=== PATIENT | female | born 1965 | race Caucasian/White ===

== ENCOUNTER 2016-12-30 08:17 | Day surgery (SDC) | payer BC, OTHER ==
[~2016-12-30 08:17] MED LIST: RINGERS SOLUTION,LACTATED 1,000 ML IV PRN
[2016-12-30] MEDS ORDERED: RINGERS SOLUTION,LACTATED 1,000 ML IV ONE (08:41)
--- NOTE | 2016-12-30 10:25 | OR ---
Operative Report - Dictated Report Narrative: Date: 12/30/2016 PRE: screening for colon CA POST: Normal colonoscopy Procedure: Total Colonoscopy Staff surgeon: Bennett Alfaro MD Anesth: MAC per [employer] EBL: None Specimens: none Comps: none apparent Description: After informed consent and appropriate sedation the patient was placed in the left lateral decubitus position. A small anterior hemorrhoidal skin tag was noted. A flexible fiberoptic video colonoscopy was introduced and advanced under direct vision without difficulty to the cecum. The usualy landmarks were identified. Preparation was excellent and excellent views were obtained. The findings were of a normal cecum, ascending colon, hepatic flexure, transverse colon, splenic flexure, descending colon, sigmoid colon, and rectum. The mucosal color, vasculature, and texture were normal throughout. No suspicious masses were seen. The patient tolerated the procedure well without apparent complications and was discharged from the endoscopy suite in stable conditioin.
[2016-12-30 11:07] VITALS: BP 153/74
== END 2016-12-30 08:18 | disposition home or self-care (01) ==
LOC: AMB 08:17
PROVIDERS: ATTEND Specialist
PROC: 0DJD8ZZ Inspection of Lower Intestinal Tract, Via Natural or Artificial Opening Endoscopic (ICD-10-PCS; principal; 2016-12-30 09:35)
DX: Z12.11 Encounter for screening for malignant neoplasm of colon (principal); I10 Essential (primary) hypertension; Z68.30 Body mass index [BMI] 30.0-30.9, adult; K64.9 Unspecified hemorrhoids